=== PATIENT | female | born 1955 | race Caucasian/White ===

== ENCOUNTER 2024-09-22 23:21 | Inpatient (IN) | payer MEDICARE, OTHER ==
[~2024-09-22] VITALS: Ht 167.6 cm; Wt 81.0 kg
--- NOTE | 2024-09-22 23:37 | Physician Documentation ---
History of Present Illness ~ Stated Complaint: [facility] Time Seen by MD: 23:31 HPI 69-year-old female, transfer from outside hospital after being cardioverted for V-tach. I received a phone call on this patient prior to transfer. She presented with dizziness, was found to be in V-tach, was hypotensive. She was cardioverted. She was started on norepinephrine. Here in the ED, she tells me she does feel short of breath. She tells me that she has had progressively worsening shortness of breath over the past month. She was hypoxic with ambulation at her primary clinic and so she was started on home oxygen yesterday. She is being treated with breathing treatments. She does not really understand with the diagnosis is that causes her shortness of breath. She denies any chest pain. She does have some leg swelling. Medication Reconciliation Allergies: Coded Allergies: No Known Allergies (Unverified , 09/22/24) Scheduled Atorvastatin Calcium (Lipitor), 1 TAB PO DAILY, (Reported) Captopril/Hydrochlorothiazide (Captopril-Hctz 50-25 mg Tablet), 1 TAB PO ONCE, (Reported) Dabigatran Etexilate Mesylate (Pradaxa), 1 CAP PO Q12H, (Reported) Diltiazem Hcl (Diltiazem 24HR Er), 1 CAP PO DAILY, (Reported) Escitalopram Oxalate (Lexapro), 1 TAB PO DAILY, (Reported) Flecainide Acetate (Flecainide Acetate), 1 TAB PO Q12H, (Reported) Review of Systems Respiratory: Reports: shortness of breath Cardiovascular: Denies: chest pain Physical Exam Physical Exam General: This is a pleasant and alert older woman sitting calmly in bed, brought in by EMS HEENT: Atraumatic, oropharynx is moist Heart: Regular rate and rhythm, appears sinus rhythm on the monitor, normal- appearing peripheral perfusion Lungs: Coarse breath sounds diffusely with significant crackles, diminished on the right, hypoxic on room air, no coughing during my exam Abdomen: Soft, nondistended Extremities: Warm and well-perfused. Mild pitting edema to the calves Neuro: Alert and oriented, no focal deficits Psychiatric: Calm and cooperative with exam Progress Results/Orders Results/Orders Orders - ANTOINETTE PEÑA MD Chest,Single View (09/23/24 00:30) Ct Chest (09/23/24 01:10) Page Hospitalist (09/23/24 02:20) Completed Orders - ANTOINETTE PEÑA MD Cbc/Diff (09/22/24 23:32) CMP (09/22/24 23:32) PBNP (09/22/24 23:32) Troponin (Single) (09/22/24 23:32) MG (09/22/24 23:37) Amiodarone/D5 360mg/200ml Bag (Nexterone (09/22/24 23:35) Electrocardiogram (09/22/24 ) Chest,Single View (09/23/24 00:30) Man Diff (09/22/24 23:59) Ct Chest (09/23/24 01:10) Medications Received in ER Medications (Trade) Dose Ordered Sig/Tarah Route PRN Reason Start Time Stop Time Status Last Admin Dose Admin Amiodarone HCL/ Dextrose 200 ml @ 0 mls/hr Q0M ONCE IV 09/22/24 23:35 09/22/24 23:38 DC 09/22/24 23:40 33.333 MLS/HR Vital Signs 09/22/24 09/22/24 09/23/24 09/23/24 23:27 23:49 00:29 01:28 Temp 97.9 Pulse 72 63 60 Resp 20 18 20 20 B/P (MAP) 129/53 95/51 (66) 106/45 (65) Pulse Ox 90 92 92 O2 Flow Rate 2.0 3.0 3.0 Laboratory Tests Test 09/22/24 23:59 White Blood Count 13.6 H Red Blood Count 3.48 L Hemoglobin 10.4 L Hematocrit 31.4 L Mean Corpuscular Volume 90.4 Mean Corpuscular Hemoglobin 29.9 Mean Corpuscular Hemoglobin Concent 33.1 Red Cell Distribution Width 17.7 H Platelet Count 107 L Mean Platelet Volume 8.9 Neutrophils (%) (Auto) 37.2 L Lymphocytes (%) (Auto) 57.0 H Monocytes (%) (Auto) 5.3 Eosinophils (%) (Auto) 0.1 Basophils (%) (Auto) 0.4 Neutrophils # (Auto) 5.0 Lymphocytes # (Auto) 7.7 H Monocytes # (Auto) 0.7 Eosinophils # (Auto) 0.0 Basophils # (Auto) 0.1 CBC Comment Differential Total Cells Counted 100 Neutrophils % (Manual) 75.0 Band Neutrophils % 1.0 Lymphocytes % (Manual) 17.0 L Monocytes % (Manual) 6.0 Eosinophils % (Manual) 1.0 Smudge Cells Few Platelet Estimate Decreased Red Blood Cell Morphology Perf Basophilic Stippling Anisocytosis 1+ Sodium Level 135 Potassium Level 4.8 Chloride Level 102 Carbon Dioxide Level 23.7 L Anion Gap 9 Blood Urea Nitrogen 31 H Creatinine 1.84 H Estimated GFR/1.73 m2 27 BUN/Creatinine Ratio 16.8 Glucose Level 105 H Calcium Level 7.9 L Magnesium Level 1.8 Total Bilirubin 0.4 Aspartate Amino Transf (AST/SGOT) 61 H Alanine Aminotransferase (ALT/SGPT) 15 Alkaline Phosphatase 76 Troponin I High Sensitivity 113 *H Pro-B-Type Natriuretic Peptide 2039 H Total Protein 8.1 Albumin 2.6 L Globulin 5.5 H Albumin/Globulin Ratio 0.5 L Chemistry Comments EKG/XRAY/CT/US/VASC/MRI EKG : Additional Comment I personally interpreted the EKG and this shows: Sinus rhythm, rate 74, T-wave inversion in the lateral leads with mild ST depression, QTC 499 Chest X-Ray : Additional Comments I personally reviewed the x-ray, and it shows: A right-sided opacity concerning for pleural effusion or consolidation, no left-sided opacity CT : Impression I personally reviewed the CT scan, and this shows a large right-sided pleural effusion, no significant left-sided effusion, no large pericardial effusion Consults/PCP Consults/PCP : Additional Comment Consult: I spoke to the internal medicine service, for admission in the hospital Medical Decision Making Additional info obtained from: old records Findings I reviewed records from the outside hospital. This shows an EKG with ventricular tachycardia at a rate of 159. She was cardioverted. Labs show potassium 4.7. Hemoglobin 9.9. BNP 1838. Chest x-ray reportedly with possible CHF. Additional Infomation The patient presents as a transfer, after being cardioverted for ventricular tachycardia. She had an extensive workup, and was on amiodarone and norepinephrine on arrival. We are able to turn off the norepinephrine in her blood pressure did not significantly drop. Repeat labs are similar to previous. Chest x-ray shows right-sided opacity concerning for pleural effusion or mass. A CT scan was then obtained which shows a large pleural effusion. The patient was admitted to the medicine service for further workup and treatment, with cardiology consult pending. Departure Impression: Primary Impression: Ventricular tachycardia Additional Impressions: Pleural effusion Acute hypoxic respiratory failure Referrals: NO PRIMARY CARE PROVIDER (PCP) Signature Scribe Signature: [email or web address] Attestation: ANTOINETTE Levin MD Sep 22, 2024 23:37
[2024-09-22] MEDS: amiodarone/D5 360MG/200ML BAG 200 ML IV ONE (23:40)
--- NOTE | 2024-09-22 23:55 | ELECTROCARDIOGRAPH REPORT ---
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 Primo Mclaughlin Measurements Intervals [place] Rate: 74 P: 78 NC: 208 QRS: 50 QRSD: 121 T: 149 QT: 449 QTc: 499 Interpretive Statements Sinus rhythm IVCD, consider atypical RBBB Abnormal T, consider ischemia, lateral leads Electronically Signed On 10-11-2024 23:37:[address] Primo Mclaughlin Please click the below link to view image of tracing.
[2024-09-23] VITALS (18 sets, daily range): BP systolic 97–149; BP diastolic 42–61; PULSE 54–72; RESP 16–22; TEMP 96.7–97.8; O2SAT 91–98
[2024-09-23 00:12] LABS: RED CELL DISTRIBUTION WIDTH 17.7 % (11.5-14.5)
[2024-09-23 00:15] LABS: MEAN PLATELET VOLUME 8.9 FL (7.4-10.4)
[2024-09-23 00:37] LABS: CREATININE 1.84 MG/DL (0.40-0.90); PRO BRAIN NATRIURETIC PEPTIDE 2039 PG/ML (0-125); TOTAL CARBON DIOXIDE 23.7 MMOL/L (24-32); eCRCL 27 ML/MIN; eGFR 27 ML/MIN
[2024-09-23 01:13] LABS: BANDS% (MANUAL) 1.0 % (0-10); EOSINOPHILS % (MANUAL) 1.0 % (0-6); LYMPHOCYTES % (MANUAL) 17.0 % (21-51); MONOCYTES % (MANUAL) 6.0 % (2-12); NEUTROPHILS % (MANUAL) 75.0 % (42-75); PLATELET ESTIMATE DECREASED
[2024-09-23] MEDS ORDERED: ESCI20TA36 PO (02:53)
[2024-09-23] MEDS ORDERED: FLEC100T PO (02:53)
[2024-09-23] MEDS ORDERED: ATOR10TA PO (02:56)
[2024-09-23] MEDS ORDERED: CAPT1TAB8 PO (02:56)
[2024-09-23] MEDS ORDERED: DILT180C90 PO (02:56)
[2024-09-23] MEDS ORDERED: DABI150C PO (02:56)
[2024-09-23] MEDS ORDERED: HYDROcodone/acetaminophen 5mg/325mg tablet PO PRN (03:35)
[2024-09-23] MEDS ORDERED: mag hydrox/Alum hydrox/simeth 30ml oral suspension PO PRN (03:35)
[2024-09-23] MEDS ORDERED: magnesium Cl slow-release 64mg tablet PO PRN (03:35)
[2024-09-23] MEDS ORDERED: magnesium sulf-water 4G/100mL 100 ML IV PRN (03:35)
[2024-09-23] MEDS ORDERED: magnesium sulf-water 2g/50mL 50 ML IV PRN (03:35)
[2024-09-23] MEDS ORDERED: potassium Cl 20 mEq SR tablet PO PRN ×2 (03:35)
[2024-09-23] MEDS ORDERED: ondansetron/PF 4mg/2ml inj IV PRN (03:35)
[2024-09-23] MEDS ORDERED: potassium Cl 40MEQ/1/2NS 520ml 520 ML IV PRN (03:35)
[2024-09-23] MEDS ORDERED: magnesium hydroxide 30ml (MOM) UD suspension PO PRN (03:35)
[2024-09-23 04:13] LABS: LEUKOCYTE ESTERASE ,URINE NEGATIVE (Neg); NITRITES, URINE NEGATIVE (Neg); OCCULT BLOOD,URINE LARGE (Neg)
[2024-09-23 04:18] LABS: UA COLLECTION TYPE FOLEY CATH
[2024-09-23 04:21] LABS: HYALINE CASTS 0-3 /LPF (NEGATIVE); SQUAMOUS EPITHELIAL CELL,UR FEW /LPF (FEW)
[2024-09-23] MEDS ORDERED: HYDROCHLOROTHIAZIDE PO SCH (05:15)
[2024-09-23] MEDS ORDERED: CAPTOPRIL PO SCH (05:15)
[2024-09-23] MEDS ORDERED: [UNRECOGNIZED DRUG - OTHER] PO SCH (05:15)
--- NOTE | 2024-09-23 05:16 | RADIOLOGY REPORT ---
Clinical History sob, abnormal cxr, chf vs effusion? Comparison None Technique: All CT scans at this medical facility are performed using dose modulation techniques as appropriate t o a performed exam including the following: Automated exposure control was utilized; adjustment of th e mA and/or kV according to patient size; and use of iterative reconstruction technique. All CT studies are reported to the Dose Index Registry of the [employer] [place] [employer]. Without Contrast Radiation Dose: CTDI (mGy): 16.85; DLP (mGy-cm): 563.80 ERIC BRICENO, [id number] TECHNIQUE: Volumetric CT acquisition of the chest was obtained from the thoracic inlet to the upper a bdomen. Coronal and sagittal reconstructed images are provided. FINDINGS: LUNGS/AIRWAYS/PLEURA: Central airways are patent. There is large right-sided pleural effusion with c ompressive atelectasis at the right middle lobe and upper lobe. There is complete collapse of the ri ght lower lobe. There is trace left-sided effusion with adjacent atelectasis. There is no pneumotho rax. HEART/VESSELS: No pericardial effusion. Heart is normal in size. Normal course and caliber of the aor ta. LYMPH NODES/MEDIASTINUM: No evidence of thoracic adenopathy. Visualized thyroid gland is unremarkable . Esophagus is unremarkable. UPPER ABDOMEN: Marked splenomegaly. OSSEOUS STRUCTURES/SOFT TISSUES: No acute or aggressive osseous lesions. IMPRESSION: Large right-sided pleural effusion with compressive atelectasis at the right middle lobe and upper lo be. There is complete collapse of the right lower lobe. There is trace left-sided effusion with adj acent atelectasis. Marked splenomegaly. This report was electronically signed by Manuel Barrow MD on 09/23/2024 5:14:15 AM.
--- NOTE | 2024-09-23 05:16 | RADIOLOGY REPORT ---
Clinical History Shortness of breath, cardioverted for V-tach, concern for congestive heart Comparison None Technique: frontal chest x-ray Without Contrast JANAKRAQUELERIC, [id number] Findings: Heart - normal lungs - Right pulmonary infiltrate No pneumothorax bones - no acute fracture. Other- elevated right hemidiaphragm Impression: 1. Right pulmonary infiltrate. This report was electronically signed by Jovan Fernández MD on 09/23/2024 5:13:03 AM.
--- NOTE | 2024-09-23 05:23 | HISTORY AND PHYSICAL-Residence ---
History & Physical Providers to CC Resident Creating Document: SOCORRO HITCHCOCK RES ~ History of Present Illness Reason for Admit\Complaint: V-tach History of Present Illness The 69-year-old female was transferred from outside hospital-[facility] after being electrically cardioverted for V-tach. She was cardioverted at around 5:58 p.m. with 100 joules. She tolerated the procedure well as per the transfer records. She also needed norepinephrine drip to support blood pressure and was transferred on the drip. In the ER, she was weaned off pressors. The patient states that she has not been feeling well for the last four months. Had shortness of breath, orthopnea, PND and intermittent bilateral pedal edema for the last four months. She got a Lexiscan done about eight months back at Dr. Sosa's office and she does not know the result. 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 She was given albuterol inhalers by her primary care doctor for her shortness of breath. Denies any chest pain. She was not feeling well but was going with her brother for camping. Her brother was driving and stopped for a break. She wanted to use restroom but she fell to weak to walk. Denies any nausea, vomiting, sweating. At the outside hospital she was found to be in V-tach and so was cardioverted. Denies any previous coronary artery stenting or CABG or being diagnosed with any heart failure. She does have history of AFib and uses diltiazem and flecainide at home. She has obstructive sleep apnea and has not been using CPAP as she feels it is uncomfortable. She was also given about 2 L oxygen about two weeks back by the primary care clinic as she was hypoxic. She also complains of chronic productive cough and postnasal drip for more than 50 years and states that it got worse in the last few months. Notices sputum which is usually clear or yellow. Denies any fever with chills, or chest pain. Now, she feels fine in the ER. Is eating ice chips no other complaints. Allergies: Coded Allergies: No Known Allergies (Unverified , 09/22/24) Home Medications Home Medications Active Reported Captopril-Hctz 50-25 mg Tablet (Captopril/HCTZ) 50 Mg-25 Mg Tablet 1 Tab PO ONCE 30 Days Diltiazem 24HR Er (Diltiazem Hcl) 180 Mg Cap.sr.24h 1 Cap PO DAILY 30 Days Pradaxa (Dabigatran Etexilate Mesylate) 150 Mg Capsule 1 Cap PO Q12H 30 Days Lipitor (Atorvastatin Calcium) 10 Mg Tablet 1 Tab PO DAILY 30 Days Lexapro (Escitalopram Oxalate) 20 Mg Tablet 1 Tab PO DAILY 30 Days Flecainide Acetate 100 Mg Tablet 1 Tab PO Q12H 30 Days Past Medical History Past Medical History AFib, hypertension, obstructive sleep apnea, depression Past Surgical History Surgical History Comment States that she had surgeries in the past but is not able to recollect as of now Past Social History Social History Comment She smoked half pack of cigarettes for 30 years and quit smoking tobacco about 30 years back. Occasionally drinks alcohol. Sometimes smokes marijuana in the last time she did it was an year back. ROS ROS Constitutional: No fever, chills, dizziness, weakness, weight gain or loss Eyes: No pain, erythema, discharge, blurring of vision ENT: No sore throat, epistaxis, tinnitus Cardiovascular: No chest pain, chest pressure, chest discomfort, palpitations, syncope, lower extremity edema, paroxysmal nocturnal dyspnea Respiratory: Mild shortness of breath and chronic productive cough present. No hemoptysis Gastrointestinal: Normal appetite. No nausea, vomiting, diarrhea, constipation, hematemesis, abdominal pain, bloating, melena or fresh blood Genitourinary: No frequency, urgency, nocturia, hematuria or dysuria Musculoskeletal: No arthralgias or myalgias Integumentary: No change in skin, hair, nails. No swelling, bruising, abrasions Neurologic: No headache, neck pain, numbness or tingling of the extremities, weakness Psychiatric: No delusions, depression, loss of interest in normal activity or change in sleep pattern, hallucinations, suicidal ideations Endocrine: No fatigue, weakness, polydipsia, polyuria, change in appetite, heat or cold intolerance, sweating, dry skin Hematological: No bleeding, petechiae, bruising Allergies: No asthma or urticaria Respiratory: Reports: shortness of breath Cardiovascular: Denies: chest pain Exam Vitals: Vital Signs Date Time Temp Pulse Resp B/P (MAP) Pulse Ox O2 Delivery O2 Flow Rate FiO2 7/5/25 05:05 57 09/23/24 03:59 20 97/45 (62) 93 3.0 09/22/24 23:27 97.9 General: Alert and oriented x4 HEENT: Normocephalic and atraumatic. Pupils equal round reactive to light and accommodation. Extraocular movements intact. Oral and nasal mucosa moist Neck: Trachea is in midline. No masses or JVD Chest: Decreased breath sounds in the right basal region. Bilateral crackles present. No rhonchi or wheezes Cardiovascular: Bradycardic. Sinus rhythm. S1-S2 normal. Murmur in the pulmonary area. No rubs Abdomen: Soft, nontender nondistended. Bowel sounds present Extremities: No cyanosis, clubbing or edema Central Nervous System: No gross sensory or motor deficits. CN II to XII grossly intact Skin: Warm and dry Diagnostic Data Last Recorded Lab Results: 09/22/24235809/22/242358 Advance Care Planning Advanced Care plannin - 30 Minutes Additional Plan Hemodynamically unstable V-tach-s/p electrical cardioversion History of AFib Now, in sinus rhythm Cardioverted at around 5:58 p.m. on 09/23/2024 Transferred on pressors. Weaned off pressors here in the ER Elevated troponins Now, on amiodarone drip. In sinus rhythm and heart rate between 55-57/minute EKG here in this hospital showed sinus rhythm, regular rate, mild ST depression- close to 1 mm in lead II, Q-waves in aVR and V1, nonspecific T-wave inversions Troponin 113 and repeat troponin ordered Magnesium 1.8. Ordered 2 g IV magnesium ProBNP 2038 Needs Cardiology consult in a.m. NPO now for possible cardiac catheterization Echocardiogram ordered Possible underlying heart failure Held home medication dabigatran due to possible cardiac catheterization procedure Held home medication diltiazem and flecainide due to ongoing amiodarone drip TSH, free T4, A1c, lipid panel, urine tox ordered Acute hypoxemic respiratory failure Large right pleural effusion Requiring 2-3 L O2 via nasal cannula Chest CT showed large right pleural effusion with compressive atelectasis at the right middle lobe and upper lobe. There is complete collapse of the right lower lobe. There is trace left-sided effusion with adjacent atelectasis. Recommend ICU consult and requires diagnostic and therapeutic thoracentesis Elevated WBC-likely reactive Normocytic normochromic anemia Iron studies, vitamin B12 and folate levels ordered Thrombocytopenia Platelets 107 No active bleeding Continue to monitor Acute kidney injury Metabolic acidosis-bicarb 23.7 BUN 31 and creatinine 1.84 Likely due to hemodynamically unstable V-tach episode Not giving fluids due to suspicion of underlying CHF Continue to monitor Obstructive sleep apnea Ordered CPAP HS Strongly advised to stay at her into CPAP DVT prophylaxis: SCDs Diet: NPO due to possible cardiac catheterization Socorro Hitchcock MD Internal Medicine Resident, PGY 3 Date of Service: Sep 23, 2024 Billing Provider: ALEKSANDAR DEL ROSARIO MD, MANOJNA RES Sep 23, 2024 05:23 ALEKSANDAR DEL ROSARIO MD Sep 23, 2024 06:36
[2024-09-23] MEDS: amiodarone/D5 360MG/200ML BAG 200 ML IV SCH ×2 (05:39→16:01)
[2024-09-23 06:54] LABS: MEAN PLATELET VOLUME 8.7 FL (7.4-10.4); RED CELL DISTRIBUTION WIDTH 18.4 % (11.5-14.5)
[2024-09-23 07:03] LABS: APTT 36 SECONDS (22-32); INR 1.3 INR
[2024-09-23 07:07] LABS: CREATININE 2.34 MG/DL (0.40-0.90); PHOSPHORUS 6.6 MG/DL (2.3-4.5); TOTAL CARBON DIOXIDE 24.3 MMOL/L (24-32); eCRCL 21 ML/MIN; eGFR 21 ML/MIN
[2024-09-23] MEDS ORDERED: TRIA1TAB5 PO (07:26)
[2024-09-23] MEDS: magnesium sulf-water 2g/50mL 50 ML IV ONE (07:42)
[2024-09-23] MEDS: ESCITALOPRAM 10 mg tablet 10 MG TABLET PO SCH (07:47)
[2024-09-23 07:49] LABS: BANDS% (MANUAL) 3.0 % (0-10); LYMPHOCYTES % (MANUAL) 44.0 % (21-51); METAMYLEOCYTES% (MANUAL) 2.0 % (0-0); MONOCYTES % (MANUAL) 4.0 % (2-12); NEUTROPHILS % (MANUAL) 47.0 % (42-75); PLATELET ESTIMATE DECREASED
[2024-09-23] MEDS: K and/or MAG REPLACEMENT MC SCH (08:00)
[2024-09-23 08:40] LABS: % IRON SATURATION 10.0 % (11-46)
--- NOTE | 2024-09-23 10:53 | ELECTROCARDIOGRAPH REPORT ---
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 CECILIA Davila Measurements Intervals [place] Rate: 55 P: 66 IA: 201 QRS: 58 QRSD: 118 T: 136 QT: 508 QTc: 486 Interpretive Statements Sinus rhythm Nonspecific intraventricular conduction delay Abnrm T, consider ischemia, anterolateral lds Electronically Signed On 09-24-2024 9:22:[address] CECILIA Davila Please click the below link to view image of tracing.
--- NOTE | 2024-09-23 11:16 | PROGRESS NOTE- Residence ---
Progress Note - Resident Providers to CC Resident Creating Document: EMILIANO HIRSCH RES ~ Antibiotic Timeout Antibiotic Ordered?: Yes Subjective Patient was seen and examined at the bedside. Currently on BiPAP. No new events reported in the telemetry. Objective Vital Signs Date Time Temp Pulse Resp B/P (MAP) Pulse Ox O2 Delivery O2 Flow Rate FiO2 09/23/24 11:00 96.9 55 18 112/59 (76) 97 Bi-pap/CPAP 3.0 09/23/24 08:06 35 Result Diagram: 09/23/24 0552 09/23/24 0552 onstitutional: No fever, chills, dizziness, weakness, weight gain or loss Eyes: No pain, erythema, discharge, blurring of vision ENT: No sore throat, epistaxis, tinnitus Cardiovascular: No chest pain, chest pressure, chest discomfort, palpitations, syncope, lower extremity edema, paroxysmal nocturnal dyspnea Respiratory: Mild shortness of breath and chronic productive cough present. No hemoptysis Gastrointestinal: Normal appetite. No nausea, vomiting, diarrhea, constipation, hematemesis, abdominal pain, bloating, melena or fresh blood Genitourinary: No frequency, urgency, nocturia, hematuria or dysuria Musculoskeletal: No arthralgias or myalgias Integumentary: No change in skin, hair, nails. No swelling, bruising, abrasions Neurologic: No headache, neck pain, numbness or tingling of the extremities, weakness Psychiatric: No delusions, depression, loss of interest in normal activity or change in sleep pattern, hallucinations, suicidal ideations Endocrine: No fatigue, weakness, polydipsia, polyuria, change in appetite, heat or cold intolerance, sweating, dry skin Hematological: No bleeding, petechiae, bruising Allergies: No asthma or urticaria Coagulation Studies Laboratory Tests Test 09/23/24 05:52 Prothrombin Time 12.8 SECONDS (9.0-12.0) H INR International Normalized Ratio 1.3 INR Activated Partial Thromboplast Time 36 SECONDS (22-32) H Coagulation Comments Plan Plan Hemodynamically unstable V-tach-s/p electrical cardioversion History of AFib Elevated troponins, type 2 [place] Patient is currently in sinus rhythm. Troponins trended down -113, 137, 121 EKG here in this hospital showed sinus rhythm, regular rate, mild ST depression- close to 1 mm in lead II, Q-waves in aVR and V1, nonspecific T-wave inversions ProBNP 2038, echocardiogram showed ejection fraction 70-75%, RVSP 49. Magnesium 1.8 at admission, received 2 g of IV magnesium. TSH, A1c normal range., U tox pending. Dr. Curtis consulted, recommended -to discontinue the flecainide but this will take few days to clear out as the patient has a HALEY. -discontinue Lexapro as this cause QT prolongation -reduce the dose of amiodarone to half and slowly discontinued. -dabigatran held for next four days for thoracentesis Acute hypoxemic respiratory failure Large right pleural effusion Requiring 2-3 L O2 via nasal cannula Chest CT showed large right pleural effusion with compressive atelectasis at the right middle lobe and upper lobe. There is complete collapse of the right lower lobe. There is trace left-sided effusion with adjacent atelectasis. -Dr. Day consulted -dabigatran we will be held for four more days before thoracocentesis can be done. Elevated WBC-likely reactive Normocytic normochromic anemia Iron studies, showed low iron, normal ferritin, low% saturation vitamin B12 and folate levels pending Thrombocytopenia Platelets 107 No active bleeding Continue to monitor Acute kidney injury Metabolic acidosis-bicarb 23.7 Creatinine increased to 2.34 from 1.84. Likely due to hemodynamically unstable V-tach episode Continue to monitor Obstructive sleep apnea Ordered CPAP HS Strongly advised to stay at her into CPAP Code status: Full code DVT prophylaxis: SCDs Diet: Heart healthy diet Emiliano hirsch M.D PGY2 Date of Service: Sep 23, 2024 Billing Provider: CARLOS CHAHAL MD Common Visit Codes: [id number] INP/OBS CARE(HIGH) EMILIANO HIRSCH, RES Sep 23, 2024 11:16 CARLOS CHAHAL MD Sep 23, 2024 18:14
[2024-09-23] MEDS: albuterol 2.5 MG/3 ML nebule NEB SCH (12:02)
[2024-09-23] MEDS: CefTRIAXone 2gm/D5W 50ml BAG 50 ML IV SCH (12:13)
--- NOTE | 2024-09-23 13:25 | CONSULTATION REPORT ---
Consult Providers to CC ~ History of Present Illness Reason for Admit\Complaint: Dyspnea, generalized weakness and pallor History of Present Illness 69-year-old female who was transferred from [facility] after electrocardioversion for V-tach. The patient reports that she had gone camping and she started having some dyspnea along with weakness and pallor in her face. Her brother and sister recommended that she go to the hospital. She was initially seen at [facility] which was diagnosed V-tach and underwent synchronous cardioversion. The patient was on flecainide and diltiazem for AFib. Her workup has revealed a large right pleural effusion and I have been asked to evaluate the patient for thoracentesis. She is on 3 L of oxygen nasal cannula and without subjective dyspnea at resting position i.e. lying in bed. Pulse oximeter reading is 95-98%. Allergies: Coded Allergies: No Known Allergies (Unverified , 09/22/24) Home Medications Home Medications Active Reported Triamterene-Hctz 75-50 Mg Tab (Triamterene/Hydrochlorothiazid) 75 Mg-50 Mg Tablet 1 Tab PO DAILY Diltiazem 24HR Er (Diltiazem Hcl) 180 Mg Cap.sr.24h 1 Cap PO DAILY 30 Days Pradaxa (Dabigatran Etexilate Mesylate) 150 Mg Capsule 1 Cap PO Q12H 30 Days Lipitor (Atorvastatin Calcium) 10 Mg Tablet 1 Tab PO DAILY 30 Days Lexapro (Escitalopram Oxalate) 20 Mg Tablet 1 Tab PO DAILY 30 Days Flecainide Acetate 100 Mg Tablet 1 Tab PO Q12H 30 Days Past Medical History Past Medical History AFib, hypertension, obstructive sleep apnea, depression Past Surgical History Surgical History Comment States that she had surgeries in the past but is not able to recollect as of now Past Social History Social History Comment She smoked half pack of cigarettes for 30 years and quit smoking tobacco about 30 years back. Occasionally drinks alcohol. Sometimes smokes marijuana in the last time she did it was an year back. Exam Vitals: Vital Signs Date Time Temp Pulse Resp B/P (MAP) Pulse Ox O2 Delivery O2 Flow Rate FiO2 09/23/24 12:14 68 18 Nasal Cannula 3.0 09/23/24 12:02 98 36 09/23/24 11:00 96.9 112/59 (76) General: No apparent distress, awake alert and conversant HEENT: N/C/AT, PERRLA, EOMI, nasal cannula oxygen on Neck: Supple with no jugular venous distention and lymphadenopathy. Chest: Symmetric expansion bilaterally, diminished breath sounds right side on auscultation and diminished vocal fremitus right side Cardiovascular: Normal S1 and S2 without any S3-S4 gallop Abdomen: Nondistended with normoactive bowel sounds soft nontender no organomegaly Extremities: No cyanosis, no clubbing and no edema. Central Nervous System: Grossly unremarkable Musculoskeletal: No obvious deformities and no joint swellings. Diagnostic Data Last Recorded Lab Results: 09/23/2452 09/23/24 0552 Diagnostic Data: Laboratory Tests Test 09/23/24 05:52 Prothrombin Time 12.8 SECONDS (9.0-12.0) H INR International Normalized Ratio 1.3 INR Activated Partial Thromboplast Time 36 SECONDS (22-32) H Coagulation Comments Additional Plan 69-year-old female with a right unilateral pleural effusion amenable to thoracentesis. The patient however was on dabigatran for anticoagulation and has a creatinine of 2.34 which increases the half-life of the bigger trend. Recommendations that dabigatran be stopped for a couple of days prior to thoracentesis if a patient has normal renal function. If the patient however has poor renal function like in this case, dabigatran should be without for a longer period of time. My suggestion is that dabigatran be held for the next four days including today and then performed an ultrasound guided right chest thoracentesis on Wednesday. There is no urgency to perform the thoracentesis because it is not a life-saving procedure this moment . We thank you for giving us the opportunity to participate in the evaluation and treatment of your patient. We will follow with you. AMBREEN HODGE MD Sep 23, 2024 13:25
--- NOTE | 2024-09-23 14:05 | CONSULTATION REPORT ---
Cardiac Consultation Report Providers to CC ~ Subjective Subjective Cardiology consultation: Status post nonsyncopal ventricular fibrillation. Brother drove her to [facility] for camping she began to feel sick lightheaded went to the emergency room was found to be in ventricular fibrillation received direct current cardioversion was hypotensive on norepinephrine by the time she arrived here she was normotensive and norepinephrine was stopped. Troponins were minimal consistent with shock. Since hospitalization she has been on amiodarone 1 mg read. And has maintained normal sinus rhythm. As an outpatient she had treated atrial fibrillation and had recently been referred to a unknown hand roller engraver in [place] for ablation. Prior to hospitalization medications were kept her pill diltiazem Pradaxa Lipitor Lexapro and flecainide. As per records history of atrial fibrillation hypertension obstructive sleep apnea depressive disorder. Initial post cardioversion 12 lead electrocardiogram with QT prolongation T-wave inversions. Repeat electrocardiogram no change. Medications at this time are intravenous amiodarone Lexapro. Oxygen. She was also found to have large right pleural effusion small left pleural effusion on CAT scanning. Turns out that her primary care started her on oxygen a couple of weeks ago for shortness of breath. For parent chest x-ray performed at that time. Since hospitalization she has also been placed on antibiotics intravenously. Objective Vitals Vital Signs Date Time Temp Pulse Resp B/P (MAP) Pulse Ox O2 Delivery O2 Flow Rate FiO2 09/23/24 12:14 68 18 Nasal Cannula 3.0 09/23/24 12:02 98 36 09/23/24 11:00 96.9 112/59 (76) Lab Results: 09/23/24 0552 09/23/24 0552 Objective Carotid no bruit diminished breath sounds at the bases dullness. Right side. No murmur no S3 gallop no rub abdomen active bowel sounds no bruits no peripheral edema. Alert cooperative memory fair. Coagulation Studies Laboratory Tests Test 09/23/24 05:52 Prothrombin Time 12.8 SECONDS (9.0-12.0) H INR International Normalized Ratio 1.3 INR Activated Partial Thromboplast Time 36 SECONDS (22-32) H Coagulation Comments Other Results He recalls having had a nuclear stress test at some time it Dr. Armenta cons office does not remember the exact date. However she recalls it being normal Echocardiography performed here normal wall motion left ventricular hypertrophy. Trivial mitral and tricuspid regurgitation. Problem\Assessment\Plan Additional Plan Impression ventricular fibrillation with post fibrillation 12 lead electrocardiogram with QT prolongation. Recommendation ; 1. discontinue flecainide it may take several days for it to clear the system due to a creatinine of 2.34. 2. Pulmonary consultation with respect to diagnostic and therapeutic thoracentesis. Dabigatran may need to be held for up to four days. 3. Considering patient has QT prolongation I am not quite sure that amiodarone is going to be much benefit to her. She did not have an acute VT. more than likely the ventricular fibrillation was a result of QT prolongation and hypoxemia She is going to remain at risk for recurrence. Reduce amiodarone infusion rate. For discontinue in observed. After discussion with patient we will reduced to 1/2 present dose. 4. Lexapro also causes QT prolongation and would discontinue that also. Prognosis is guarded no intervention needed at this time supportive care. ANTOINETTE LOMAX MD Sep 23, 2024 14:05
[2024-09-23 21:24] LABS: OSMOLALITY UA 486 MOSM/K (50-1400)
[2024-09-23 21:28] LABS: CREATININE,URINE RANDOM 116.0 MG/DL; UA UREA RANDOM 736.0 MG/DL; URINE AMPHETAMINE SCREEN NEGATIVE (Neg); URINE BARBITUATE SCREEN NEGATIVE (Neg); URINE BENZODIAZEPINES SCREEN POSITIVE (Neg); URINE COCAINE SCREEN NEGATIVE (Neg); URINE METHADONE SCREEN NEGATIVE (Neg); URINE OPIATE SCREEN NEGATIVE (Neg); URINE PHENCYCLIDINE SCREEN NEGATIVE (Neg)
[2024-09-23] MEDS ORDERED: CETI10TA14 PO (23:40)
[2024-09-23] MEDS ORDERED: FEXO-236 PO (23:40)
[2024-09-24] VITALS (19 sets, daily range): BP systolic 124–157; BP diastolic 58–66; PULSE 54–120; RESP 14–25; TEMP 97.3–98.6; O2SAT 93–99
[2024-09-24] MEDS: sodium chloride 3% for inhalation 4ml nebule IH ONE (00:30)
[2024-09-24 06:28] LABS: MEAN PLATELET VOLUME 9.2 FL (7.4-10.4); RED CELL DISTRIBUTION WIDTH 18.0 % (11.5-14.5)
[2024-09-24 06:40] LABS: APTT 30 SECONDS (22-32); INR 1.1 INR
[2024-09-24 07:10] LABS: CHOL/HDL RATIO 5.8 (0.00-4.99); CREATININE 1.60 MG/DL (0.40-0.90); LDL CHOLESTEROL 55 MG/DL (50-100); PHOSPHORUS 4.5 MG/DL (2.3-4.5); TOTAL CARBON DIOXIDE 25.6 MMOL/L (24-32); eCRCL 31 ML/MIN; eGFR 32 ML/MIN
[2024-09-24 07:51] LABS: BANDS% (MANUAL) 3.0 % (0-10); LYMPHOCYTES % (MANUAL) 53.0 % (21-51); MONOCYTES % (MANUAL) 8.0 % (2-12); NEUTROPHILS % (MANUAL) 26.0 % (42-75); REACTIVE LYMPHOCYTES % 10.0 % (0-0)
[2024-09-24 07:52] LABS: PLATELET ESTIMATE DECREASED
[2024-09-24] MEDS: sodium chloride 3% for inhalation 4ml nebule IH SCH (09:00)
--- NOTE | 2024-09-24 13:00 | PROGRESS NOTE ---
Progress Note Cardiology Providers to CC ~ Subjective Subjective Cardiology progress note: Patient is sitting in bed having food from home comfortable intravenous amiodarone infusing. On oxygen 1 L/min. Monitor reviewed no high-grade arrhythmias. Objective Result Diagram: 09/24/24 0537 09/24/24 0537 Objective Laboratories creatinine improved to 1.6 acute kidney injury improving. Hemoglobin 9.2 platelet count [id number] is low. Coagulation Studies Laboratory Tests Test 09/24/24 05:37 Prothrombin Time 11.4 SECONDS (9.0-12.0) INR International Normalized Ratio 1.1 INR Activated Partial Thromboplast Time 30 SECONDS (22-32) Coagulation Comments Problem\Assessment\Plan Additional Plan Assessment: Continues to improve post VFib event. Recommendation: Continued supportive care. Stopped doing laboratories daily. No need for oxygen if oxygen saturation is 90% or greater. We will sign off as her usual md ophthalmologist will be here on 09/25/2024. ANTOINETTE LOMAX MD Sep 24, 2024 13:00
--- NOTE | 2024-09-24 16:46 | PROGRESS NOTE- Residence ---
Progress Note - Resident Providers to CC Resident Creating Document: EMILIANO HIRSCH RES ~ Antibiotic Timeout Antibiotic Ordered?: No Subjective Patient was seen and examined at the bedside. Currently on 3 L oxygen with nasal cannula. Patient had an episode of tachycardia, heart rate came back to normal range. Objective Vital Signs Date Time Temp Pulse Resp B/P (MAP) Pulse Ox O2 Delivery O2 Flow Rate FiO2 09/24/24 16:25 105 18 Nasal Cannula 3.0 09/24/24 16:20 93 32 09/24/24 15:01 97.7 139/60 (86) Result Diagram: 09/24/24 0537 09/24/24 0537 General: Alert and oriented x4 HEENT: Normocephalic and atraumatic. Pupils equal round reactive to light and accommodation. Extraocular movements intact. Oral and nasal mucosa moist Neck: Trachea is in midline. No masses or JVD Chest: Breathing is unlabored, some rhonchi heard in the right lower lung. Cardiovascular: Sinus rhythm, S1-S2 normal. No murmur, no rubs. Abdomen: Soft, nontender nondistended. Bowel sounds present Extremities: No cyanosis, clubbing or edema Central Nervous System: No gross sensory or motor deficits. CN II to XII grossly intact Skin: Warm and dry Coagulation Studies Laboratory Tests Test 09/24/24 05:37 Prothrombin Time 11.4 SECONDS (9.0-12.0) INR International Normalized Ratio 1.1 INR Activated Partial Thromboplast Time 30 SECONDS (22-32) Coagulation Comments Plan Plan Hemodynamically unstable V-tach-s/p electrical cardioversion History of AFib Elevated troponins, type 2 MO Patient is currently in sinus rhythm. Troponins trended down -113, 137, 121 EKG here in this hospital showed sinus rhythm, regular rate, mild ST depression- close to 1 mm in lead II, Q-waves in aVR and V1, nonspecific T-wave inversions ProBNP 2038, echocardiogram showed ejection fraction 70-75%, RVSP 49. Magnesium 1.8 at admission, received 2 g of IV magnesium. TSH, A1c normal range., U tox positive for fentanyl and benzodiazepine. Dr. Curtis consulted, recommended -to discontinue the flecainide but this will take few days to clear out as the patient has a HALEY. -discontinue Lexapro as this cause QT prolongation -reduce the dose of amiodarone to half and slowly discontinued. -dabigatran held for next four days for thoracentesis 09/24/2024-patient had an episode of tachy or never heart rate went up to 125, heart rate came back to 90s. Continuing amiodarone@ 0.5 mg/minute for now. Dr. Curtis has signed off today. We will follow up with Dr. Sosa tomorrow who is patient's crucible packer. Acute hypoxemic respiratory failure Large right pleural effusion Requiring 2-3 L O2 via nasal cannula Chest CT showed large right pleural effusion with compressive atelectasis at the right middle lobe and upper lobe. There is complete collapse of the right lower lobe. There is trace left-sided effusion with adjacent atelectasis. -Dr. Day consulted -dabigatran we will be held for four more days before thoracocentesis can be done. Elevated WBC-likely reactive Normocytic normochromic anemia Iron studies, showed low iron, normal ferritin, low% saturation vitamin B12 and folate levels in normal range. Thrombocytopenia Platelets 95 No active bleeding Continue to monitor Acute kidney injury Metabolic acidosis-improved Creatinine improved to 1.6 Likely due to hemodynamically unstable V-tach episode Continue to monitor Obstructive sleep apnea Ordered CPAP HS Strongly advised to stay at her into CPAP Code status: Full code DVT prophylaxis: SCDs Diet: Heart healthy diet Emiliano Hirsch M.D PGY2 Date of Service: Sep 24, 2024 Billing Provider: CARLOS CHAHAL MD Common Visit Codes: [id number] INP/OBS CARE(HIGH) EMILIANO HIRSCH, RES Sep 24, 2024 16:46 CARLOS CHAHAL MD Sep 24, 2024 18:01
[2024-09-24] MEDS: diltiazem CD 180mg cap (once-daily) PO SCH (19:26)
[2024-09-25] VITALS (27 sets, daily range): BP systolic 115–136; BP diastolic 44–86; PULSE 61–120; RESP 15–36; TEMP 97.1–98; O2SAT 90–97
[2024-09-25 06:51] LABS: MEAN PLATELET VOLUME 9.0 FL (7.4-10.4); RED CELL DISTRIBUTION WIDTH 17.8 % (11.5-14.5)
[2024-09-25 07:01] LABS: APTT 26 SECONDS (22-32); INR 1.1 INR
[2024-09-25 07:32] LABS: CREATININE 1.27 MG/DL (0.40-0.90); PHOSPHORUS 3.3 MG/DL (2.3-4.5); TOTAL CARBON DIOXIDE 26.6 MMOL/L (24-32); eCRCL 39 ML/MIN; eGFR 42 ML/MIN
[2024-09-25 09:07] LABS: EOSINOPHILS % (MANUAL) 1.0 % (0-6); LYMPHOCYTES % (MANUAL) 65.0 % (21-51); METAMYLEOCYTES% (MANUAL) 1.0 % (0-0); MONOCYTES % (MANUAL) 10.0 % (2-12); NEUTROPHILS % (MANUAL) 23.0 % (42-75); PLATELET ESTIMATE DECREASED
--- NOTE | 2024-09-25 12:19 | RADIOLOGY REPORT ---
PROCEDURE: ULTRASOUND GUIDED THORACENTESIS USING TEMPORARY CATHETER HISTORY: 69 Female with bilateral chest requiring thoracentesis. DOCUMENTATION: Informed consent was obtained and a procedural time out was performed. TECHNIQUE: Ultrasound was used to locate the bilatearl pleural fluid collection with an image archiv ed in the PACS. FINDINGS: Small bilateral pleural effusions, too small for thoracentesis. IMPRESSION: Small bilateral pleural effusions, too small for thoracentesis.
--- NOTE | 2024-09-25 18:08 | CONSULTATION REPORT ---
History of Present Illness Providers to CC CC: LORI SOSA MD ~ Reason for Admit\Admit Dx: Cardiology consultation History of Present Illness This is a 69-year-old female who presented secondary to ventricular tachycardia. She was going to the [facility] and overall felt poorly. She reports feeling very fatigued. When she got to the [facility] to go camping instead of going to [place] her brother took her to the emergency department. She had significant shortness for breath. She has been having shortness for breath for some time and her primary care recently started her on home oxygen therapy. She did qualify for oxygen with hypoxia. Upon arrival to [place] patient had complaints of dizziness and weakness. Initial EKGs showed a wide complex tachycardia with a heart rate of 160 beats per minute. Underwent electrical cardioversion with successful conversion to sinus rhythm. EKG strips were reviewed. Confirmed ventricular tachycardia rate of 159 beats per minute. underwent DCCV. Successful conversion to sinus rhythm. Repeat EKG shows sinus rhythm rate of 72. First-degree AV block with FL interval 220 milliseconds. EKG upon arrival to our hospital shows sinus rhythm rate of 55. Nonspecific intraventricular conduction delay. FL interval 201 milliseconds. QT 508 milliseconds with a QTC 486 milliseconds. Telemetry patient is in and out of atrial fibrillation/flutter. Allergies: Coded Allergies: No Known Allergies (Unverified , 09/22/24) Home Medications Home Medications Active Reported Allergy Relief (Fexofenadine HCl) 180 Mg Tablet 1 Tab PO DAILY PRN Cetirizine HCl 10 Mg Tablet 1 Tab PO DAILY Triamterene-Hctz 75-50 Mg Tab (Triamterene/Hydrochlorothiazid) 75 Mg-50 Mg Tablet 1 Tab PO DAILY Diltiazem 24HR Er (Diltiazem Hcl) 180 Mg Cap.sr.24h 1 Cap PO DAILY 30 Days Pradaxa (Dabigatran Etexilate Mesylate) 150 Mg Capsule 1 Cap PO Q12H 30 Days Lipitor (Atorvastatin Calcium) 10 Mg Tablet 1 Tab PO DAILY 30 Days Lexapro (Escitalopram Oxalate) 20 Mg Tablet 1 Tab PO DAILY 30 Days Flecainide Acetate 100 Mg Tablet 1 Tab PO Q12H 30 Days Past Medical History Medical History Comment Atrial fibrillation Hypertension Obstructive sleep apnea Depression Past Surgical History Surgical History Comment Hysterectomy Cholecystectomy Bilateral carpal tunnel release Past Social History Social History Comment History of smoking. Quit 30 years ago. No alcohol. No drug use. Physical Exam Last Vital Signs Recorded: RN Vital Signs have been reviewed: Yes, Temperature: 98.0, Source: Temporal, Heart Rate: 96, Respiratory Rate: 16, BP: 134/86, Pulse Oximetry: 94, Weight: 81.000 Physical Exam General: Awake, alert, oriented. No apparent distress Neck: Supple. Normal range of motion. No JVD Respiratory: Lungs are clear to auscultation bilaterally. No respiratory distress. Chest: Normal shape and size. No accessory muscle use. Cardiovascular: Regular rate and rhythm. S1-S2. No murmur, gallop, rub. Gastrointestinal: Abdomen is soft. Nontender to palpation. Bowel sounds present. Extremities: No lower extremity edema, cyanosis or clubbing. Neurologic: Alert and oriented x4. Nonfocal Psychiatric: Normal mood and affect. Skin: Normal color. Warm and dry. Review of Systems ROS Patient reported dizziness, shortness for breath and overall feeling fatigued and poorly prior to arrival. Now improved. Results EKG EKG Initial EKG etc. post: ventricular tachycardia rate of 159 beats per minute. underwent DCCV. Successful conversion to sinus rhythm. Repeat EKG shows sinus rhythm rate of 72. First-degree AV block with FL interval 220 milliseconds. EKG upon arrival to our hospital shows sinus rhythm rate of 55. Nonspecific intraventricular conduction delay. FL interval 201 milliseconds. QT 508 milliseconds with a QTC 486 milliseconds. Telemetry patient is in and out of atrial fibrillation/flutter. Echocardiogram Echocardiogram Preliminary echocardiogram shows an LVEF of 70-75% with [id number] MR. Diagram Lab Result Diagram: 09/25/24 0559 09/25/24 0559 Assessment/Plan Additional Plan Patient presented for Cardiology evaluation secondary to ventricular tachycardia. The following is her problem list: Ventricular tachycardia No loss of consciousness. Possible etiologies of ischemia versus long QT reviewed. Recommend ischemic evaluation with angiogram. Risks, benefits and alternatives were reviewed with her. We will schedule her for tomorrow evening. --okay to continue amiodarone for now. Paroxysmal atrial fibrillation/flutter Telemetry reviewed. Patient has been in and out of atrial fibrillation as well as atrial flutter. --hold anticoagulation for now given need for angiogram and possible defibrillator. --continue rate control with diltiazem. --recommend DVT prophylaxis per hospitalist Minimally elevated troponins. Consistent with cardioversion. Pleural effusion Plans for possible thoracentesis on Wednesday? Ultrasound today shows small bilateral pleural effusions that are too small for thoracentesis. --receiving Lasix Acute kidney injury Significantly improved today. --avoid nephrotoxic medications where possible. Case discussed with Dr. Claudia Sosa. In agreement with the ischemic evaluation. We will proceed with angiogram tomorrow. She will be NPO after lunch. Supervising MD Supervising Physician: LEE Hinton NP Sep 25, 2024 18:08
--- NOTE | 2024-09-25 19:10 | PROGRESS NOTE- Residence ---
Progress Note - Resident Providers to CC Resident Creating Document: EMILIANO HIRSCH RES ~ Antibiotic Timeout Antibiotic Ordered?: No Subjective Patient was seen and examined at the bedside. Currently on 3 L oxygen with nasal cannula. Patient has tachycardia and is in and out of AFib. Objective Vital Signs Date Time Temp Pulse Resp B/P (MAP) Pulse Ox O2 Delivery O2 Flow Rate FiO2 09/25/24 19:03 106 16 97 Nasal Cannula* 3 32 09/25/24 15:22 98.0 134/86 (102) Result Diagram: 09/25/24 0559 09/25/24 0559 General: Alert and oriented x4 HEENT: Normocephalic and atraumatic. Pupils equal round reactive to light and accommodation. Extraocular movements intact. Oral and nasal mucosa moist Neck: Trachea is in midline. No masses or JVD Chest: Breathing is unlabored, some rhonchi heard in the right lower lung. Cardiovascular: Sinus rhythm, S1-S2 normal. No murmur, no rubs. Abdomen: Soft, nontender nondistended. Bowel sounds present Extremities: No cyanosis, clubbing or edema Central Nervous System: No gross sensory or motor deficits. CN II to XII grossly intact Skin: Warm and dry Coagulation Studies Laboratory Tests Test 09/25/24 05:59 Prothrombin Time 11.0 SECONDS (9.0-12.0) INR International Normalized Ratio 1.1 INR Activated Partial Thromboplast Time 26 SECONDS (22-32) Coagulation Comments Plan Plan Hemodynamically unstable V-tach-s/p electrical cardioversion History of AFib Elevated troponins, type 2 AL Troponins trended down -113, 137, 121 EKG here in this hospital showed sinus rhythm, regular rate, mild ST depression- close to 1 mm in lead II, Q-waves in aVR and V1, nonspecific T-wave inversions TSH, A1c normal range., U tox positive for fentanyl and benzodiazepine. Dr. Curtis consulted, recommended -to discontinue the flecainide -discontinue Lexapro as this cause QT prolongation -dabigatran held for next four days for thoracentesis 09/24/2024-patient had an episode of tachy or never heart rate went up to 125, heart rate came back to 90s. Continuing amiodarone@ 0.5 mg/minute for now. 09/25/2024 -patient has been in and out of AFib -consulted Dr. Sosa -patient is scheduled for angiogram tomorrow and possible defibrillator placement. -continuing diltiazem and amiodarone drip. -dabigatran held for angio tomorrow. Elevated proBNP ProBNP 2038, echocardiogram showed ejection fraction 70-75%, RVSP 49. Started Lasix 40 mg daily Acute hypoxemic respiratory failure Large right pleural effusion Requiring 2-3 L O2 via nasal cannula Chest CT showed large right pleural effusion with compressive atelectasis at the right middle lobe and upper lobe. There is complete collapse of the right lower lobe. There is trace left-sided effusion with adjacent atelectasis. -dabigatran we will be held for four more days before thoracocentesis can be done. -on Lasix 40 mg IV daily. Elevated WBC-improved Normocytic normochromic anemia Iron studies, showed low iron, normal ferritin, low% saturation vitamin B12 and folate levels in normal range. Thrombocytopenia Improving No active bleeding Continue to monitor Acute kidney injury Metabolic acidosis-improved Creatinine improved to 1.27 Likely due to hemodynamically unstable V-tach episode Continue to monitor Obstructive sleep apnea Ordered CPAP HS Strongly advised to stay at her into CPAP Code status: Full code DVT prophylaxis: SCDs Diet: NPO Emiliano Hirsch M.D PGY2 Date of Service: Sep 25, 2024 Billing Provider: ANGELES LEWIS MD Common Visit Codes: [id number] INP/OBS CARE(HIGH) EMILIANO HIRSCH, RES Sep 25, 2024 19:10 ANGELES LEWIS MD Sep 26, 2024 07:49
[2024-09-26] VITALS (34 sets, daily range): BP systolic 105–158; BP diastolic 49–88; PULSE 59–71; RESP 13–24; TEMP 97–97.7; O2SAT 91–98
[2024-09-26 07:11] LABS: MEAN PLATELET VOLUME 9.2 FL (7.4-10.4); RED CELL DISTRIBUTION WIDTH 17.2 % (11.5-14.5)
[2024-09-26 07:13] LABS: APTT 26 SECONDS (22-32); INR 1.1 INR
[2024-09-26 07:16] LABS: CREATININE 1.24 MG/DL (0.40-0.90); PHOSPHORUS 4.2 MG/DL (2.3-4.5); TOTAL CARBON DIOXIDE 24.7 MMOL/L (24-32); eCRCL 40 ML/MIN; eGFR 43 ML/MIN
[2024-09-26 08:46] LABS: BANDS% (MANUAL) 2.0 % (0-10); LYMPHOCYTES % (MANUAL) 61.0 % (21-51); MONOCYTES % (MANUAL) 9.0 % (2-12); NEUTROPHILS % (MANUAL) 28.0 % (42-75); PLATELET ESTIMATE DECREASED
--- NOTE | 2024-09-26 10:52 | PROGRESS NOTE ---
Progress Note Cardiology Providers to CC ~ Subjective Subjective No arrhythmias on telemetry. Plan for ischemic evaluation this evening. Objective Result Diagram: 09/26/2458 09/26/2458 Objective General: Awake, alert, oriented. No apparent distress Neck: Supple. Normal range of motion. No JVD Respiratory: Lungs are clear to auscultation bilaterally. No respiratory distress. Chest: Normal shape and size. No accessory muscle use. Cardiovascular: Regular rate and rhythm. S1-S2. No murmur, gallop, rub. Extremities: No lower extremity edema, cyanosis or clubbing. Neurologic: Alert and oriented x4. Nonfocal Psychiatric: Normal mood and affect. Skin: Normal color. Warm and dry. Coagulation Studies Laboratory Tests Test 09/26/24 05:58 Prothrombin Time 11.2 SECONDS (9.0-12.0) INR International Normalized Ratio 1.1 INR Activated Partial Thromboplast Time 26 SECONDS (22-32) Coagulation Comments Problem\Assessment\Plan Additional Plan Patient presented for Cardiology evaluation secondary to ventricular tachycardia. The following is her problem list: Ventricular tachycardia No loss of consciousness. Possible etiologies of ischemia versus long QT reviewed. Recommend ischemic evaluation with angiogram. Risks, benefits and alternatives were reviewed with her. She had the opportunity to ask questions and wishes to proceed. We will schedule her for this evening. --okay to continue amiodarone for now. Paroxysmal atrial fibrillation/flutter Telemetry reviewed. Patient has been in and out of atrial fibrillation as well as atrial flutter. --hold anticoagulation for now given need for angiogram and possible defibrillator. --continue rate control with diltiazem. --recommend DVT prophylaxis per hospitalist Minimally elevated troponins. Consistent with cardioversion. Pleural effusion Plans for possible thoracentesis on Wednesday? Ultrasound today shows small bilateral pleural effusions that are too small for thoracentesis. --receiving Lasix Acute kidney injury Significantly improved today. --avoid nephrotoxic medications where possible. Discussed with Dr. Claudia Sosa. In agreement with the plan above. Supervising Physician: LEE Hinton NP Sep 26, 2024 10:52
--- NOTE | 2024-09-26 12:09 | PROGRESS NOTE- Residence ---
Progress Note - Resident Providers to CC Resident Creating Document: EMILIANO HIRSCH RES ~ Antibiotic Timeout Antibiotic Ordered?: Yes Subjective Patient was seen and examined at the bedside. Currently on 3 L oxygen with nasal cannula. Patient is currently in sinus rhythm. Is scheduled for an angiogram and possible defibrillator placement this evening. Objective Vital Signs Date Time Temp Pulse Resp B/P (MAP) Pulse Ox O2 Delivery O2 Flow Rate FiO2 09/26/24 11:50 62 20 Nasal Cannula 3.0 09/26/24 11:45 93 32 09/26/24 06:00 97.7 118/49 (72) Result Diagram: 09/26/24 0558 09/26/24 0558 General: Alert and oriented x4 HEENT: Normocephalic and atraumatic. Pupils equal round reactive to light and accommodation. Extraocular movements intact. Oral and nasal mucosa moist Neck: Trachea is in midline. No masses or JVD Chest: Breathing is unlabored, some rhonchi heard in the right lower lung. Cardiovascular: Sinus rhythm, S1-S2 normal. No murmur, no rubs. Abdomen: Soft, nontender nondistended. Bowel sounds present Extremities: No cyanosis, clubbing or edema Central Nervous System: No gross sensory or motor deficits. CN II to XII grossly intact Skin: Warm and dry Coagulation Studies Laboratory Tests Test 09/26/24 05:58 Prothrombin Time 11.2 SECONDS (9.0-12.0) INR International Normalized Ratio 1.1 INR Activated Partial Thromboplast Time 26 SECONDS (22-32) Coagulation Comments Plan Plan Hemodynamically unstable V-tach-s/p electrical cardioversion History of AFib Elevated troponins, type 2 TX Troponins trended down -113, 137, 121 EKG here in this hospital showed sinus rhythm, regular rate, mild ST depression- close to 1 mm in lead II, Q-waves in aVR and V1, nonspecific T-wave inversions TSH, A1c normal range., U tox positive for fentanyl and benzodiazepine. Dr. Curtis consulted, recommended -to discontinue the flecainide -discontinue Lexapro as this cause QT prolongation -dabigatran held for next four days for thoracentesis 09/24/2024-patient had an episode of tachy or never heart rate went up to 125, heart rate came back to 90s. Continuing amiodarone@ 0.5 mg/minute for now. 09/25/2024 -patient has been in and out of AFib -consulted Dr. Sosa -patient is scheduled for angiogram tomorrow and possible defibrillator placement. -continuing diltiazem and amiodarone drip. -dabigatran held for angio tomorrow. 09/26/2024 -currently in sinus rhythm with a controlled ventricular rate. -currently on amiodarone drip and p.o. diltiazem 180 mg. -scheduled for angiogram this evening and a possible defibrillator. -we will start on dabigatran after the procedure done. Elevated proBNP ProBNP 2038, echocardiogram showed ejection fraction 70-75%, RVSP 49. On 40 mg daily Acute hypoxemic respiratory failure Large right pleural effusion Requiring 2-3 L O2 via nasal cannula Chest CT showed large right pleural effusion with compressive atelectasis at the right middle lobe and upper lobe. There is complete collapse of the right lower lobe. There is trace left-sided effusion with adjacent atelectasis. -dabigatran we will be held for four more days before thoracocentesis can be done. -on Lasix 40 mg IV daily. 09/26/[address] Briseno yesterday-bowel bilateral pleural effusion, too small for thoracentesis. Elevated WBC-improved Normocytic normochromic anemia Iron studies, showed low iron, normal ferritin, low% saturation vitamin B12 and folate levels in normal range. Thrombocytopenia Improving No active bleeding Continue to monitor Acute kidney injury Metabolic acidosis-improved Creatinine improved to 1.27 Likely due to hemodynamically unstable V-tach episode Continue to monitor 09/26/2024-creatinine improving Obstructive sleep apnea Ordered CPAP HS Strongly advised to continue CPAP at home Code status: Full code DVT prophylaxis: SCDs Diet: Heart healthy diet Disposition: Scheduled for angiogram and possible defibrillator placement today evening. Emiliano Hirsch M.D PGY2 Date of Service: Sep 26, 2024 Billing Provider: ANGELES LEWIS MD Common Visit Codes: 24106-[id number] INP/OBS CARE(HIGH) EMILIANO HIRSCH, RES Sep 26, 2024 12:09 ANGELES LEWIS MD Sep 27, 2024 06:31
[2024-09-26] MEDS ORDERED: midazolam 1 mg/ML 2ml injection ONE (16:28)
[2024-09-26] MEDS ORDERED: fentaNYL/PF 50MCG/1 ML 2ML syringe ONE (16:28)
[2024-09-26] MEDS ORDERED: heparin 1,000unit/ml 10ml vial 10 ML ONE (16:28)
[2024-09-26] MEDS ORDERED: LIDOcaine 1% (10mg/ml) 2ml vial ONE (16:28)
[2024-09-26] MEDS ORDERED: verapamil 2.5 mg/ml inj IV ONE (16:28)
[2024-09-26] MEDS ORDERED: nitroGLYCERIN 500mcg/5mL D5W 5 ML IV ONE (16:29)
[2024-09-26] MEDS ORDERED: potassium Cl 40MEQ/1/2NS 520ml 520 ML IV PRN (18:15)
[2024-09-26] MEDS ORDERED: potassium Cl 20 mEq SR tablet PO PRN ×2 (18:15)
[2024-09-26] MEDS ORDERED: magnesium sulf-water 4G/100mL 100 ML IV PRN (18:15)
[2024-09-26] MEDS ORDERED: magnesium sulf-water 2g/50mL 50 ML IV PRN (18:15)
[2024-09-26] MEDS ORDERED: HYDROcodone/acetaminophen 10/325mg tab PO PRN (19:45)
[2024-09-26] MEDS ORDERED: HYDROcodone/acetaminophen 5mg/325mg tablet PO PRN (19:45)
[2024-09-26] MEDS ORDERED: OXAZEpam 15mg capsule PO PRN (19:45)
[2024-09-26] MEDS ORDERED: ondansetron/PF 4mg/2ml inj IV PRN (19:45)
[2024-09-26] MEDS: K and/or MAG REPLACEMENT MC SCH (20:39)
[2024-09-26] MEDS: magnesium Cl slow-release 64mg tablet PO PRN (20:43)
[2024-09-27] VITALS (17 sets, daily range): BP systolic 124–142; BP diastolic 46–75; PULSE 56–117; RESP 15–22; TEMP 97.4–97.5; O2SAT 92–97
[2024-09-27 06:36] LABS: INR 1.1 INR
[2024-09-27 06:42] LABS: MEAN PLATELET VOLUME 8.7 FL (7.4-10.4); RED CELL DISTRIBUTION WIDTH 17.6 % (11.5-14.5)
[2024-09-27 07:14] LABS: CHOL/HDL RATIO 5.4 (0.00-4.99); CREATININE 1.19 MG/DL (0.40-0.90); LDL CHOLESTEROL 59 MG/DL (50-100); PHOSPHORUS 4.2 MG/DL (2.3-4.5); TOTAL CARBON DIOXIDE 22.3 MMOL/L (24-32); eCRCL 41 ML/MIN; eGFR 45 ML/MIN
[2024-09-27 07:51] LABS: LYMPHOCYTES % (MANUAL) 62.0 % (21-51); MONOCYTES % (MANUAL) 9.0 % (2-12); NEUTROPHILS % (MANUAL) 29.0 % (42-75)
[2024-09-27 07:52] LABS: PLATELET ESTIMATE DECREASED
[2024-09-27] MEDS ORDERED: AMIO200T76 PO (16:43)
[2024-09-27] MEDS ORDERED: FURO-150 PO (16:43)
--- NOTE | 2024-09-27 17:14 | DISCHARGE SUMMARY-Residence ---
Discharge Summary Providers to CC Resident Creating Document: EBEN HIRSCHNOEKRIS, MIS ~ Discharge Summary Admission Diagnosis: vtach-s/p cardioversion Hospital Course DATE OF ADMISSION: 09/23/2024 DATE OF DISCHARGE: 09/27/2024 Labs at the time of discharge WBC 12.3 Hemoglobin 10.2 Platelet 97 Sodium 137 Potassium 3.5 Creatinine 1.19 BUN 24 ProBNP 2038 Echocardiogram LEFT VENTRICLE Normal LV size and wall thickness. Overall systolic function is normal. LVEF is 70-75%. RIGHT VENTRICLE RV is normal size and function. ATRIA The left atrium size is normal. AORTIC VALVE Trileaflet AV appears mildly sclerotic without stenosis. No insufficiency. MITRAL VALVE Mild mitral annular calcification without stenosis. Mild to moderate regurgitation. TRICUSPID VALVE The tricuspid valve is normal in structure with mild to moderate regurgitation. PULMONIC VALVE The pulmonary valve is normal in structure without insufficiency. GREAT VESSELS The aortic root is normal in size. IVC is dilated and collapses less than 50% with inspiration. Chest CT Large right-sided pleural effusion with compressive atelectasis at the right middle lobe and upper lobe. There is complete collapse of the right lower lobe. There is trace left-sided effusion with adjacent atelectasis. Marked splenomegaly. Discharge Diagnosis\Comment: Hemodynamically unstable V-tach-s/p electrical cardioversion History of AFib Elevated troponins, type 2 SC Acute hypoxemic respiratory failure Large right pleural effusion HALEY likely secondary to renal tubular stasis Metabolic acidosis Obstructive sleep apnea Thrombocytopenia Normocytic normochromic anemia Operations\Procedures: None Consultants: Dr. Shannon Briseno Complications: None Condition on DC: Stable New Medications: Furosemide (Lasix) 20 Mg Tablet 1 TAB PO DAILY for 30 Days, #30 TAB 0 Refills Amiodarone Hcl (Cordarone) 200 Mg Tablet 200 MG PO BID for 30 Days, #60 TAB Continued Medications: Atorvastatin Calcium (Lipitor) 10 Mg Tablet 1 TAB PO DAILY for 30 Days, #30 TAB 0 Refills Cetirizine HCl (Cetirizine HCl) 10 Mg Tablet 1 TAB PO DAILY Dabigatran Etexilate Mesylate (Pradaxa) 150 Mg Capsule 1 CAP PO Q12H for 30 Days, #60 CAP 0 Refills Diltiazem Hcl (Diltiazem 24HR Er) 180 Mg Cap.sr.24h 1 CAP PO DAILY for 30 Days, #30 CAP 0 Refills Escitalopram Oxalate (Lexapro) 20 Mg Tablet 1 TAB PO DAILY for 30 Days, #30 TAB 0 Refills Fexofenadine HCl (Allergy Relief) 180 Mg Tablet 1 TAB PO DAILY PRN for allergies Triamterene/Hydrochlorothiazid (Triamterene-Hctz 75-50 Mg Tab) 75 Mg-50 Mg Tablet 1 TAB PO DAILY Discontinued Medications: Flecainide Acetate (Flecainide Acetate) 100 Mg Tablet 1 TAB PO Q12H for 30 Days, #60 TAB 0 Refills Discharge Summary: HPI The 69-year-old female was transferred from outside hospital-[facility] after being electrically cardioverted for V-tach with 100 joules. She also needed norepinephrine drip to support blood pressure and was transferred on the drip. In the ER, she was weaned off pressors. She presented to status with the complaints of shortness of breath, orthopnea, PND and intermittent bilateral pedal edema for the last four months. She got a Lexiscan done about eight months back at Dr. Sosa's office and she does not know the result. Denies any chest pain. She was not feeling well but was going with her brother for camping. Her brother was driving and stopped for a break. She wanted to use restroom but she fell to weak to walk. Denies any nausea, vomiting, sweating. At the outside hospital she was found to be in V-tach and so was cardioverted. Denies any previous coronary artery stenting or CABG or being diagnosed with any heart failure. She does have history of AFib and uses diltiazem and flecainide at home. She has obstructive sleep apnea and has not been using CPAP as she feels it is uncomfortable. She was also given about 2 L oxygen about two weeks back by the primary care clinic as she was hypoxic. Course in the hospital Patient was admitted hemodynamically unstable V-tach episode, was placed on telemetry monitoring which did not show any significant findings. TSH was in the normal range. Dr. Curtis was consulted, recommended to discontinue flecainide and to discontinue Lexapro as it causes QT prolongation. Was started on amiodarone drip. On 09/25/2024 the patient was in and out of AFib, the amiodarone drip was continued. Patient's bsa officer Dr. Ortega was consulted, on on 09/25/2024, patient had an angiogram, refer to Dr. Sosa's catheterization report. On 09/26/2024, patient went back to sinus rhythm with controlled ventricular rate, discontinued amiodarone drip and continued patient's home medication diltiazem 180 mg. Patient's home medication dabigatran was held for angiogram. Postprocedure-patient was given a LifeVest and we will be following up with Dr. Sosa in the outpatient for event monitoring. Patient also had a large right pleural effusion as shown in CT chest. Consulted Dr. Briseno who evaluated with the patient, reported the fluid was too low for thoracentesis. Patient also had elevated proBNP, 2038, echo showed ejection fraction of 70-75% with an RVSP 49, was started on Lasix 40 mg daily. Also had HALEY likely secondary to renal tubular stasis and metabolic acidosis which were likely secondary to unstable V-tach episode, improved with repeat labs. Patient also had Troponinemia likely secondary to the V-tach episode which downtrended. Evaluation for anemia showed low iron, normal ferritin, low% saturation, vitamin B12 and folate levels in the normal range. Patient is stable enough to be discharged home. At the time of discharge had the following physical examination findings General: Alert and oriented x4 HEENT: Normocephalic and atraumatic. Pupils equal round reactive to light and accommodation. Extraocular movements intact. Oral and nasal mucosa moist Neck: Trachea is in midline. No masses or JVD Chest: Breathing is unlabored, some rhonchi heard in the right lower lung. Cardiovascular: Sinus rhythm, S1-S2 normal. No murmur, no rubs. Abdomen: Soft, nontender nondistended. Bowel sounds present Extremities: No cyanosis, clubbing or edema Central Nervous System: No gross sensory or motor deficits. CN II to XII grossly intact Skin: Warm and dry Discharge medications Lasix 20 mg Amiodarone 200 mg p.o. b.i.d. Continued home medications Atorvastatin 10 mg Dabigatran 150 mg p.o. q.12 Diltiazem 180 mg daily Discontinued medications -flecainide Discharge instructions Follow up with PCP in two weeks Follow up with Dr. Claudia Sosa, appointment on 10/02/2024 at 10:30 a.m. [phone], [address] [place] [address] Discuss about event monitor with a bsa officer. Discontinue flecainide Continue diltiazem 180 mg daily and dabigatran 150 mg q.12 Start amiodarone 200 mg b.i.d. daily Continue Lasix 20 mg daily. Continue to wear LifeVest all the time. Call 911 or return to ER in case of chest pain, palpitations, lightheadedness, shortness of breadth. *Problems/Diagnosis: (1) Atrial fibrillation and flutter (2) Ventricular tachycardia Status: Acute (3) Pleural effusion Status: Acute (4) Acute hypoxic respiratory failure Status: Acute Total Time Spent on D/C: Up to 30 Minutes Date of Service: Sep 27, 2024 Billing Provider: ANGELES LEWIS MD Common Visit Codes: 50210-HOR/OBS DISCH DAY >30min EMILIANO HIRSCH, RES Sep 27, 2024 17:14 ANGELES LEWIS MD Sep 28, 2024 15:37
--- NOTE | 2024-09-27 18:15 | CARDIOLOGY REPORT ---
APPROVED REPORT EXAM: Comprehensive 2D, Doppler, and color-flow Echocardiogram. Patient Location: 302 Blood Pressure: 97/43 mmHg Heart Rate: 55 bpm Indications Abnormal EKG Troponin: 113, 137 ProBNP: 2038 MALTED MILK MIXER: Juan Francisco Sosa MD No Previous ECHO 2D Dimensions LA Diam3.7 cm IVSd 1.0 (0.7-1.1cm) LVDd 4.7 cm PWd 0.8 (0.7-1.1cm) IVSs 1.5 (0.8-1.2cm) LVDs 2.6 (2.5-4.0cm) PWs 1.2 (0.8-1.2cm) LVOT Diameter 1.90 (1.8-2.4cm) LVEF(%) 75.5 (>50%) IVC 21.82 mm FS (%) 44.3 % SV 78.7 ml CO 4.2 L/min M-Mode Dimensions Left Atrium(MM) 3.30 (2.5-4.0cm) Aortic Root 3.04 (2.2-3.7cm) Aortic Cusp Exc 1.65 (1.5-2.0cm) MV EPSS 0.6 (<0.5cm) Aortic Valve AoV Peak Eliu. 177.2 cm/s AoV VTI 33.5 cm AO Peak GR. 12.6 mmHg AO Mean GR. 5 mmHg LVOT VTI 24.78 cm LVOT Peak Eliu. 125.1 cm/s NAT(VTI)/BSA 2.10 cm2/m2 NAT (VTI) 2.10 cm2 Mitral Valve MV E Velocity 79.4 cm/s MV Peak Gr. 4 mmHg MV DECEL TIME 244 ms MV A Velocity 49.0 cm/s MV PHT 64 ms E/A Ratio 1.6 MVA (PHT) 3.44 cm2 MV [id number] cm/s TDI Lateral E' P. V11.05 cm/s E/Lateral E' 7.2 Tricuspid Valve TR P. Velocity 314 cm/s RAP ESTIMATE 10 mmHg TR Peak Gr. 39 mmHg RVSP 49 mmHg LEFT VENTRICLE Normal LV size and wall thickness. Overall systolic function is normal. Overall LVEF is 70-75%. RIGHT VENTRICLE RV is normal size and function. ATRIA The left atrium size is normal. AORTIC VALVE Trileaflet AV appears mildly sclerotic without stenosis. No insufficiency. MITRAL VALVE Mild mitral annular calcification without stenosis. Mild to moderate regurgitation. TRICUSPID VALVE The tricuspid valve is normal in structure with mild to moderate regurgitation. PULMONIC VALVE The pulmonary valve is normal in structure without insufficiency. GREAT VESSELS The aortic root is normal in size. IVC is dilated and collapses less than 50% with inspiration. PERICARDIUM Normal pericardium. No effusion. Other Information Study Quality: Adequate Conclusion Overall LVEF is 70-75%. Normal LV size and wall thickness. Overall systolic function is normal. RV is normal size and function. Trileaflet AV appears mildly sclerotic without stenosis. No insufficiency. Mild mitral annular calcification without stenosis. Mild to moderate regurgitation. The tricuspid valve is normal in structure with mild to moderate regurgitation. The pulmonary valve is normal in structure without insufficiency. The aortic root is normal in size. Normal pericardium. No effusion.
--- NOTE | 2024-10-13 22:00 | CARDIOLOGY REPORT ---
DATE OF SERVICE: 09/26/2024 DICTATING PHYSICIAN: Osman Sosa MD CARDIAC CATHETERIZATION REPORT DATE OF STUDY: 09/26/2024. PROCEDURES: * Left heart catheterization. * Selective coronary angiography. * Left ventriculography. * Conscious sedation monitoring time for 15 minutes. INDICATIONS: * Ventricular tachycardia. * Near syncope. PHYSICIAN: Osman Sosa MD DESCRIPTION OF PROCEDURE: After informed consent was obtained, the patient was brought to the cardiac prestressed concrete laborer in a fasting state where the patient was prepped and draped in the usual sterile manner. After adequate anesthesia was obtained using 1% lidocaine to the right wrist, a 5-Khmer sheath was inserted into the right radial artery using a modified Seldinger technique. Thereafter, using a cocktail of heparin, verapamil and nitroglycerin, the cocktail was given via the sheath in the radial artery to prevent coronary vasospasm and for anticoagulation. Next, using an Ultimate-2 catheter, the catheter was advanced under fluoroscopy guidance into the ascending aorta. The catheter was then manipulated to engage the left coronary system and coronary angiography of the left system was obtained. Next, the catheter was disengaged and manipulated to engage the right coronary artery and selective coronary angiography of the right coronary artery was obtained. Thereafter, the catheter was disengaged from the right coronary artery and manipulated to advance into the left ventricle where left ventriculography in the BURCIAGA position was obtained. The catheter was then removed. Hemostasis was obtained using the radial band. HEMODYNAMICS: * For the patient's hemodynamics, please refer to the event log. * There was no significant gradient across the aortic valve on catheter pullback. * Left ventricular end diastolic pressure was 3 mmHg. FINDINGS: * The left main coronary artery is a normal caliber vessel with my luminal irregularities. * All of the patient's coronary arteries are normal caliber vessel with my luminal irregularities and no significant coronary artery disease. * Left ventriculography revealed the presence of normal left ventricular function. IMPRESSION: * Mild luminal irregularities with no significant coronary artery disease by angiography. * Normal left ventricular function. * Left ventricular end diastolic pressure is 3 mmHg. Osman Sosa MD TID: [id number] RECEIPT: [id number] /[facility]
== END 2024-09-27 17:41 | disposition home or self-care (01) | DRG 280 ==
LOC: ER 23:22 → ED HOLD 09-23 03:36 → PCU 3S 09-23 05:03
PROVIDERS: ADMIT Internal Medicine Sleep Medicine; ATTEND Internal Medicine
PROC: 5A09357 Assistance with Respiratory Ventilation, Less than 24 Consecutive Hours, Continuous Positive Airway Pressure (ICD-10-PCS; 2024-09-23)
PROC: 5A09357 Assistance with Respiratory Ventilation, Less than 24 Consecutive Hours, Continuous Positive Airway Pressure (ICD-10-PCS; 2024-09-24)
PROC: 4A023N7 Measurement of Cardiac Sampling and Pressure, Left Heart, Percutaneous Approach (ICD-10-PCS; principal; 2024-09-26)
PROC: B2111ZZ Fluoroscopy of Multiple Coronary Arteries using Low Osmolar Contrast (ICD-10-PCS; 2024-09-26)
PROC: B2151ZZ Fluoroscopy of Left Heart using Low Osmolar Contrast (ICD-10-PCS; 2024-09-26)
DX: I47.20 Ventricular tachycardia, unspecified (principal); J96.01 Acute respiratory failure with hypoxia; I21.A1 Myocardial infarction type 2; N17.0 Acute kidney failure with tubular necrosis; I49.01 Ventricular fibrillation; I48.0 Paroxysmal atrial fibrillation; I10 Essential (primary) hypertension; D64.9 Anemia, unspecified; D69.6 Thrombocytopenia, unspecified; F32.A Depression, unspecified; G47.33 Obstructive sleep apnea (adult) (pediatric); I48.92 Unspecified atrial flutter; I44.0 Atrioventricular block, first degree; Z90.710 Acquired absence of both cervix and uterus; Z79.899 Other long term (current) drug therapy; Z87.891 Personal history of nicotine dependence
CPT/HCPCS: 36415; 71045; 71250; 76604; 80053; 80061; 80305; 81001; 82570; 82607; 82728; 82746; 83036; 83540; 83550; 83735; 83880; 83935; 84100; 84133; 84300; 84439; 84443; 84484; 84540; 85007; 85025; 85610; 85730; 87081; 87207; 93005; 93306; 93458; 94640; 94660; 94760; 96374; 99152; 99285; A4615; A6449; C1729; C1894; G0378; J0282; J0696; J1644; J1938; J2003; J2250; J3010; J3490; J7030; J7040; Q9967